=== PATIENT | female | born 1940 | race Caucasian/White ===

== ENCOUNTER 2022-01-06 20:29 | Inpatient (IN) | payer MEDICARE ==
[~2022-01-06] VITALS: Ht 157.5 cm; Wt 81.4 kg
[2022-01-06 21:37] LABS: HEMOGLOBIN 13.9 gm/dl (12.3-15.3); RED BLOOD COUNT 4.32 M/UL (4.00-5.10); WHITE BLOOD COUNT 16.3 K/UL (4.5-11.0)
--- NOTE | 2022-01-07 04:16 | NUR ---
PTS BP IS 77/[address] MARTIN. ORDERS RECIEVED.
--- NOTE | 2022-01-07 05:42 | NUR ---
PTS BP IS 64/31 AFTER 500ML NS BOLUS. NOTIFIED DR MARTIN AND ORDERS RECIEVED.
[2022-01-07 09:17] LABS: HEMOGLOBIN 11.8 gm/dl (12.3-15.3); RED BLOOD COUNT 3.66 M/UL (4.00-5.10); WHITE BLOOD COUNT 9.9 K/UL (4.5-11.0)
[2022-01-07] MEDS ORDERED: METOPROLOL TAR100 MG PO (17:34)
[2022-01-07] MEDS ORDERED: RESTORIL 15 MG15 MG PO (17:35)
[2022-01-07] MEDS ORDERED: XARELTO15 MG PO (17:36)
[2022-01-07] MEDS ORDERED: DILTIAZEM ER120 M1 PO (17:37)
[2022-01-07] MEDS ORDERED: VITAMIN D325 MCG PO (17:38)
[2022-01-07] MEDS ORDERED: VITAMIN B-121000 MC3 PO (17:38)
--- NOTE | 2022-01-07 19:25 | NUR ---
CALLED DR HIDALGO ABOUT PTS BP OF 85/49 MAP OF 54 ORDERS TO STOP CARDIZEM GTT FOR NOW AND CONTINUE VASOPRESSIN. MAY NEED TO RESTART CARDIZEM GTT NEEDED. WILL REASSESS NEEDED. PT IS ALERT AND ORIENTED AND NAD AT THIS TIME.
--- NOTE | 2022-01-07 22:39 | NUR ---
IN AND OUT CATH PERFORMED TO OBTAIN URINE SPECIMEN PER ORDERS. PT TOLERATED WELL. URINE NOTED TO BE CLOUDY AND SLIMY IN APPEARANCE WITH DARK YELLOW COLOR. TOTAL 300ML REMOVED FROM BLADDER. PT TOLERATED AND STERILE TECHNIQUE PERFORMED. URINE SENT TO LAB PER ORDERS.
--- NOTE | 2022-01-07 23:33 | NUR ---
NOTIFIED DR HAWKINS OF PTS URINE RESULTS ORDERS PLACED.
[2022-01-08 03:21] LABS: HEMOGLOBIN 9.9 gm/dl (12.3-15.3)
[2022-01-08 03:25] LABS: RED BLOOD COUNT 3.1 M/UL (4.00-5.10); WHITE BLOOD COUNT 7.2 K/UL (4.5-11.0)
[2022-01-09 05:01] LABS: HEMOGLOBIN 10.5 gm/dl (12.3-15.3); RED BLOOD COUNT 3.38 M/UL (4.00-5.10); WHITE BLOOD COUNT 5.6 K/UL (4.5-11.0)
[2022-01-11 02:47] LABS: HEMOGLOBIN 12.2 gm/dl (12.3-15.3); RED BLOOD COUNT 3.88 M/UL (4.00-5.10); WHITE BLOOD COUNT 9.8 K/UL (4.5-11.0)
[2022-01-13 03:08] LABS: HEMOGLOBIN 11.5 gm/dl (12.3-15.3); RED BLOOD COUNT 3.59 M/UL (4.00-5.10); WHITE BLOOD COUNT 10.7 K/UL (4.5-11.0)
[2022-01-14 03:55] LABS: BUN/CREATININE RATIO 22 (0-10)
[2022-01-14 05:13] LABS: HEMOGLOBIN 11.2 gm/dl (12.3-15.3); RED BLOOD COUNT 3.51 M/UL (4.00-5.10); WHITE BLOOD COUNT 10.9 K/UL (4.5-11.0)
[2022-01-15 06:04] LABS: BUN/CREATININE RATIO 23 (0-10)
[2022-01-20 05:34] LABS: BUN/CREATININE RATIO 16 (0-10)
[2022-01-21 04:35] LABS: BUN/CREATININE RATIO 18 (0-10)
[2022-01-22 06:58] LABS: BUN/CREATININE RATIO 17 (0-10)
[2022-01-23 06:36] LABS: BUN/CREATININE RATIO 17 (0-10)
[2022-01-24 04:17] LABS: HEMOGLOBIN 10.4 gm/dl (12.3-15.3); RED BLOOD COUNT 3.28 M/UL (4.00-5.10); WHITE BLOOD COUNT 8.7 K/UL (4.5-11.0)
[2022-01-24 04:20] LABS: BUN/CREATININE RATIO 18 (0-10)
[2022-01-25 04:31] LABS: HEMOGLOBIN 10.1 gm/dl (12.3-15.3); RED BLOOD COUNT 3.25 M/UL (4.00-5.10); WHITE BLOOD COUNT 9.3 K/UL (4.5-11.0)
[2022-01-25 05:19] LABS: BUN/CREATININE RATIO 19 (0-10)
[2022-01-26 03:46] LABS: HEMOGLOBIN 10.4 gm/dl (12.3-15.3); RED BLOOD COUNT 3.33 M/UL (4.00-5.10); WHITE BLOOD COUNT 9.8 K/UL (4.5-11.0)
[2022-01-26 04:02] LABS: BUN/CREATININE RATIO 18 (0-10)
--- NOTE | 2022-01-26 11:53 | NUR ---
PATIENT'S DAUGHTER CAME TO VISIT AND TOOK HER [facility]LET HOME.
[2022-01-27 06:08] LABS: HEMOGLOBIN 11.7 gm/dl (12.3-15.3); RED BLOOD COUNT 3.72 M/UL (4.00-5.10); WHITE BLOOD COUNT 9.4 K/UL (4.5-11.0)
[2022-01-27 07:03] LABS: BUN/CREATININE RATIO 18 (0-10)
[2022-01-27 22:36] LABS: BODY FLUID SOURCE PLEURAL; MONONUCLEAR CELLS 76 (75-100); POLYMORPHONUCLEAR % 24 (0-25); RBC (AUTOMATED) 500 (0-100000); WBC (AUTOMATED) 169 (0-500)
[2022-01-27 22:42] LABS: LDH, BODY FLUID 81 U/L
[2022-01-27 22:43] LABS: AMYLASE, BODY FLUID 17 U/L
[2022-01-28 02:57] LABS: HEMOGLOBIN 12.3 gm/dl (12.3-15.3); RED BLOOD COUNT 3.85 M/UL (4.00-5.10)
[2022-01-28 03:13] LABS: BUN/CREATININE RATIO 17 (0-10)
[2022-01-28 03:15] LABS: WHITE BLOOD COUNT 13.6 K/UL (4.5-11.0)
[2022-01-29 02:41] LABS: WHITE BLOOD COUNT 11.9 K/UL (4.5-11.0)
[2022-01-29 02:43] LABS: RED BLOOD COUNT 3.19 M/UL (4.00-5.10)
[2022-01-30 06:11] LABS: HEMOGLOBIN 9.9 gm/dl (12.3-15.3); RED BLOOD COUNT 3.18 M/UL (4.00-5.10); WHITE BLOOD COUNT 11.6 K/UL (4.5-11.0)
[2022-02-01 05:12] LABS: HEMOGLOBIN 9.1 gm/dl (12.3-15.3); RED BLOOD COUNT 2.92 M/UL (4.00-5.10); WHITE BLOOD COUNT 12.5 K/UL (4.5-11.0)
[2022-02-02 02:54] LABS: HEMOGLOBIN 9.5 gm/dl (12.3-15.3); RED BLOOD COUNT 2.99 M/UL (4.00-5.10); WHITE BLOOD COUNT 12.3 K/UL (4.5-11.0)
--- NOTE | 2022-02-03 05:49 | NUR ---
PATIENTS HR WAS RUNNING 130'S-140'S MD MADE4 AWARE AND NEW ORDERTS PLACED. MEDS GIVEN PATIENT IS NOT EXPERIENCING ANY NEW SYMPTOMS AT THIS TIME.
[2022-02-03 06:04] LABS: HEMOGLOBIN 9.3 gm/dl (12.3-15.3); RED BLOOD COUNT 2.93 M/UL (4.00-5.10); WHITE BLOOD COUNT 13.8 K/UL (4.5-11.0)
[2022-02-04 05:56] LABS: HEMOGLOBIN 9.7 gm/dl (12.3-15.3); RED BLOOD COUNT 3.07 M/UL (4.00-5.10); WHITE BLOOD COUNT 13.9 K/UL (4.5-11.0)
[2022-02-05 19:31] LABS: HEMOGLOBIN 9.6 gm/dl (12.3-15.3); RED BLOOD COUNT 3.03 M/UL (4.00-5.10); WHITE BLOOD COUNT 10.8 K/UL (4.5-11.0)
[2022-02-11 04:04] LABS: BUN/CREATININE RATIO 29 (0-10)
[2022-02-13 03:34] LABS: HEMOGLOBIN 9.8 gm/dl (12.3-15.3); RED BLOOD COUNT 3.12 M/UL (4.00-5.10); WHITE BLOOD COUNT 17.2 K/UL (4.5-11.0)
[2022-02-13 05:14] LABS: BUN/CREATININE RATIO 23 (0-10)
[2022-02-14 06:39] LABS: HEMOGLOBIN 10.6 gm/dl (12.3-15.3); RED BLOOD COUNT 3.39 M/UL (4.00-5.10)
[2022-02-14 07:13] LABS: BUN/CREATININE RATIO 32 (0-10)
--- NOTE | 2022-02-27 16:40 | NUR ---
1640- DR. BELCHER STATES IT IS OK FOR PATIENT TO COME OUT OF PRECAUTIONS.
--- NOTE | 2022-03-04 02:52 | NUR ---
AT 0130 PT . VERIFIED WITH 2 OTHER NON LINEAR EDITOR'S. APPROX. 0140: ATTEMPTED TO NOTIFY DAUGHTER. NO ANSWER AT THIS TIME. WILL TRY TO CALL BACK. APPROX. 0143: ATTEMPTED TO NOTIFY HOUSE. NO ANSWER AT THIS TIME. WILL TRY TO CALL BACK. APPROX. 0146 NOTIFIED KRYSTLE OF APPROX. 0157 ATTEMPTED TO NOTIFY HOUSE. NO ANSWER AT THIS TIME. WILL TRY TO CALL BACK. APPROX. 0200 ATTEMPTED TO NOTIFY DAUGHTER. NO ANSWER AT THIS TIME. WILL TRY TO CALL BACK. APPROX. 0206 NOTIFIED MD APPROX. 0244 ATTEMPTED TO NOTIFY DAUGHTER. NO ANSWER AT THIS TIME. LEFT MESSAGE FOR DAUGHTER TO CALL BACK. APPROX. 0247 SPOKE WITH HOUSE AND NOTIFIED OF PT AND ATTEMPTS OF CALLING DAUGHTER.
--- NOTE | 2022-03-04 07:23 | NUR ---
0700: RN SPOKE WITH [facility], EMILIANA PONCE - NOW IN ROUTE TO HOSPITAL. DANNY AWAITING AT BEDSIDE.
== END 2022-03-04 01:30 | disposition expired | DRG 871 ==
LOC: ER1 20:29 → PROG CARE 23:38 → CDU 23:38 → MED SURG 4 23:38 → PROG CARE 01-07 02:30 → MED SURG 4 01-14 12:02 → PROG CARE 02-05 14:45 → MED SURG 4 02-13 15:56
PROVIDERS: Internal Medicine; Internal Medicine Nephrology; Physician Assistant; ADMIT Internal Medicine
PROC: 3E043XZ Introduction of Vasopressor into Central Vein, Percutaneous Approach (ICD-10-PCS; 2022-01-07)
PROC: 30233N1 Transfusion of Nonautologous Red Blood Cells into Peripheral Vein, Percutaneous Approach (ICD-10-PCS; 2022-01-08)
PROC: B24BZZZ Ultrasonography of Heart with Aorta (ICD-10-PCS; 2022-01-11)
PROC: 0W993ZZ Drainage of Right Pleural Cavity, Percutaneous Approach (ICD-10-PCS; 2022-01-27)
PROC: BB4BZZZ Ultrasonography of Pleura (ICD-10-PCS; 2022-01-27)
PROC: 3E0333Z Introduction of Anti-inflammatory into Peripheral Vein, Percutaneous Approach (ICD-10-PCS; principal; 2022-02-12)
PROC: 5A0955A Assistance with Respiratory Ventilation, Greater than 96 Consecutive Hours, High Flow/Velocity Cannula (ICD-10-PCS; 2022-02-12)
DX: A41.9 Sepsis, unspecified organism (principal); J96.21 Acute and chronic respiratory failure with hypoxia; R65.21 Severe sepsis with septic shock; I50.23 Acute on chronic systolic (congestive) heart failure; U07.1 COVID-19; J12.82 Pneumonia due to coronavirus disease 2019; N17.0 Acute kidney failure with tubular necrosis; G93.41 Metabolic encephalopathy; L03.114 Cellulitis of left upper limb; Z16.12 Extended spectrum beta lactamase (ESBL) resistance; E87.2 Acidosis; I48.20 Chronic atrial fibrillation, unspecified; I13.0 Hypertensive heart and chronic kidney disease with heart failure and stage 1 through stage 4 chronic kidney disease, or unspecified chronic kidney disease; E87.3 Alkalosis; B37.49 Other urogenital candidiasis; J90 Pleural effusion, not elsewhere classified; I31.3 Pericardial effusion (noninflammatory); J93.83 Other pneumothorax; Z66 Do not resuscitate; M79.7 Fibromyalgia; Z51.5 Encounter for palliative care; I27.20 Pulmonary hypertension, unspecified; I50.813 Acute on chronic right heart failure; N18.30 Chronic kidney disease, stage 3 unspecified; G30.9 Alzheimer's disease, unspecified; F02.80 Dementia in other diseases classified elsewhere, unspecified severity, without behavioral disturbance, psychotic disturbance, mood disturbance, and anxiety; R53.81 Other malaise; E87.6 Hypokalemia; E83.42 Hypomagnesemia; D63.1 Anemia in chronic kidney disease; B96.20 Unspecified Escherichia coli [E. coli] as the cause of diseases classified elsewhere; S16.1XXA Strain of muscle, fascia and tendon at neck level, initial encounter; S40.012A Contusion of left shoulder, initial encounter; S30.0XXA Contusion of lower back and pelvis, initial encounter; K22.2 Esophageal obstruction; I48.0 Paroxysmal atrial fibrillation; E86.0 Dehydration; G89.29 Other chronic pain; L89.152 Pressure ulcer of sacral region, stage 2; N20.0 Calculus of kidney; Z79.01 Long term (current) use of anticoagulants; R13.10 Dysphagia, unspecified; I08.3 Combined rheumatic disorders of mitral, aortic and tricuspid valves; R33.9 Retention of urine, unspecified; I95.9 Hypotension, unspecified; W18.30XA Fall on same level, unspecified, initial encounter; Y92.238 Other place in hospital as the place of occurrence of the external cause; Z88.1 Allergy status to other antibiotic agents; Z90.49 Acquired absence of other specified parts of digestive tract; Z90.710 Acquired absence of both cervix and uterus; Z88.0 Allergy status to penicillin; Z88.8 Allergy status to other drugs, medicaments and biological substances; Z81.1 Family history of alcohol abuse and dependence; Z80.9 Family history of malignant neoplasm, unspecified; Z91.81 History of falling; Z87.01 Personal history of pneumonia (recurrent); Z91.018 Allergy to other foods; I25.2 Old myocardial infarction
CPT/HCPCS: ECHO; 36415; 36600; 70450; 71045; 72125; 72128; 72131; 73030; 73130; 73502; 74230; 80048; 80053; 80202; 81001; 82150; 82436; 82550; 82553; 82570; 82803; 82945; 82962; 83615; 83735; 83880; 83986; 84100; 84132; 84133; 84156; 84157; 84300; 84439; 84443; 84484; 85025; 85027; 85610; 86140; 87040; 87070; 87086; 87205; 89050; 89051; 92526; 92610; 92611-GN; 93005; 93306; 93971; 94640; 94760; 96374; 97110; 97110-GP-CQ; 97162; 97164; 97165; 97530; 97530-GP-CQ; 97535; 99285; A6212; C9113; G0378; J1100; J1160; J1335; J1940; J2060; J2185; J2270; J2370; J2405; J3370; J3475; J7030; J7070; P9047; U0002